=== PATIENT | male | born 1950 | race Caucasian/White ===

== ENCOUNTER 2022-03-17 08:15 | Outpatient (CLI) | payer MEDICARE, SELFPAY ==
--- NOTE | 2022-03-17 08:27 | CRLHL7_ITS ---
For Patients: As a result of the Century Cures Act, medical imaging exams and procedure reports are released immediately into your electronic medical record. You may view this report before your referring provider. If you have questions, please contact your health care provider. INDICATION: Left peripheral renal mass. TECHNIQUE: Abdominal MRI standard technique T1-T2 T T1 fat-suppressed postcontrast and diffusion imaging. 20 cc of IV gadolinium. COMPARISON: 09/04/2021. FINDINGS: Kidneys: Left kidney: Stable enhancing small exophytic solid lesion 1.3 cm posterior upper pole. No new lesions. No overall change. Renal vein is patent. No hydronephrosis. Right kidney: Stable no change. Lymph nodes: No pathologic enlargement. Miscellaneous abdomen: The liver spleen pancreas adrenal glands show no other significant change. Skeletal: No suspicious bone lesions. IMPRESSION: 1. 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 2. No signs of progression or obvious metastatic lesion. Dictated by Avinash Winter MD @ 03/17/2022 2:43:36 PM (Electronically Signed)
== END 2022-03-17 08:16 | disposition home or self-care (01) ==
PROVIDERS: PCP Family Medicine; Visit Provider Urology
DX: N28.89 Other specified disorders of kidney and ureter (principal)
CPT/HCPCS: 74183; A9575